=== PATIENT | female | born 1985 | race Hispanic/Latino ===

== ENCOUNTER 2016-06-16 11:09 | Emergency (ER) | payer MEDICAID ==
[2016-06-16 11:13] VITALS: BP 114/67; PULSE 79; TEMP 98; O2SAT 100
[2016-06-16 11:14] VITALS: BMI 20.9
--- NOTE | 2016-06-16 12:14 | ED PDOC ---
HPI: Female Pain Time Seen by Provider: 06/16/16 11:26 Chief Complaint (Nursing): Female Genitourinary Chief Complaint (Provider): Pelvic pain History Per: Patient Additional Complaint(s): Pt. complains of "lower abdominal cramping x 1 year pain radiates to right lower abdomen & worst pain during sexual intercourse". Pt. admits having an IUD placed 3 years ago. Pt also notes increased heavy periods over the last year. Past Medical History Reviewed: Nursing Documentation, Vital Signs Vital Signs: Last Vital Signs Temp 98 F 06/16/16 11:12 Pulse 79 06/16/16 11:12 Resp BP 114/67 06/16/16 11:12 Pulse Ox 100 06/16/16 11:12 - Medical History PMH: No Chronic Diseases - Surgical History Surgical History: No Surg Hx - Family History Family History: States: No Known Family Hx - Living Arrangements Living Arrangements: With Family - Social History Current smoker - smoking cessation education provided: No Alcohol: None Drugs: Denies - Home Medications Home Medications: Ambulatory Orders Medication Instructions Recorded Ibuprofen [Motrin] 600 mg PO Q6 #20 tab 06/16/16 - Allergies Allergies/Adverse Reactions: Allergies Allergy/AdvReac Type Severity Reaction Status Date / Time morphine Allergy ANAPHYLAXIS Verified 06/16/16 11:38 Review of Systems ROS Statement: Except As Marked, All Systems Reviewed And Found Negative Gastrointestinal: Positive for: Abdominal Pain Physical Exam - Reviewed Nursing Documentation Reviewed: Yes Vital Signs Reviewed: Yes - Physical Exam Appears: Positive for: Well, Non-toxic, No Acute Distress Head Exam: Positive for: ATRAUMATIC, NORMAL INSPECTION, NORMOCEPHALIC Skin: Positive for: Normal Color, Warm, DRY Eye Exam: Positive for: EOMI, Normal appearance, PERRL ENT: Positive for: Normal ENT Inspection Neck: Positive for: Normal, Painless ROM Cardiovascular/Chest: Positive for: Regular Rate, Rhythm Respiratory: Positive for: CNT, Normal Breath Sounds Gastrointestinal/Abdominal: Positive for: Bowel Sounds, Soft, Tenderness ( pelvic and RLW pain). Negative for: Distended, Guarding Back: Positive for: Normal Inspection Extremity: Positive for: Normal ROM Neurologic/Psych: Positive for: Alert, Oriented - Laboratory Results Result Diagrams: 06/16/16 12:48 06/16/16 12:48 - ECG O2 Sat by Pulse Oximetry: 100 Medical Decision Making Medical Decision Making: Preg (-) CBC, COMP and UA WNL IMPRESSION: 2.3 cm posterior wall fibroid in the lower uterine segment. IUD remains in satisfactory position. Pt educated on results and demonstrated full understanding. Advised OB follow up, return to ED with any concerns Disposition - Clinical Impression Clinical Impression: Pelvic pain, Uterine fibroid - Patient ED Disposition Is Patient to be Admitted: No - Disposition Referrals: Richmond Reilly Jr., MD [Primary Care Provider] - Disposition: Routine/Home Disposition Time: 15:37 Condition: STABLE Prescriptions: Ibuprofen [Motrin] 600 mg PO Q6 #20 tab Instructions: Uterine Fibroids (ED), Pelvic Pain in Women (ED)
[2016-06-16 12:42] LABS: URINE BILIRUBIN NEGATIVE (NEGATIVE); URINE BLOOD NEGATIVE (NEGATIVE); URINE COLOR YELLOW (YELLOW); URINE GLUCOSE (UA) NEG (Normal); URINE KETONE TRACE mg/dL (NEGATIVE); URINE LEUKOCYTE ESTERASE NEG Leu/uL (Negative); URINE PROTEIN 30 mg/dL (NEGATIVE); URINE UROBILINOGEN 0.2-1.0 mg/dL (0.2-1.0); WBC URINE 2 /hpf (0-5)
[2016-06-16 13:17] LABS: BASO # 0.1 K/uL (0.0-0.2); BASO % 0.8 % (0.0-2.0); EOS # 0.1 K/uL (0.0-0.7); EOS % 1.4 % (0.0-4.0); LYMPH # 1.9 K/uL (1.0-4.3); LYMPH % 30.3 % (20.0-40.0); MEAN CELL VOLUME 86.5 fl (81.0-99.0); MEAN CORPUSCULAR HEMOGLOBIN 29.8 pg (27.0-31.0); MEAN CORPUSCULAR HGB CONC 34.5 g/dL (33.0-37.0); MEAN PLATELET VOLUME 8.8 fl (7.2-11.7); MONO # 0.5 K/uL (0.0-0.8); MONO % 8.2 % (0.0-10.0); NEUT # 3.7 K/uL (1.8-7.0); NEUT % 59.3 % (50.0-75.0); NRBC % 0.1 % (0.0-0.0); RED CELL DISTRIBUTION WIDTH 15.2 % (11.5-14.5); WHITE BLOOD COUNT 6.3 K/uL (4.8-10.8)
[2016-06-16 13:22] LABS: ALB/GLOB RATIO 1.2 (1.0-2.1); ALKALINE PHOSPHATASE 61 U/L (38-126); ALT/SGPT 27 U/L (9-52); AST/SGOT 24 U/L (14-36); BILIRUBIN,TOTAL 1.4 mg/dl (0.2-1.3); BLOOD UREA NITROGEN 18 mg/dl (7-17); CALCIUM 9.9 mg/dL (8.4-10.2); CARBON DIOXIDE 27 mmol/L (22-30); CHLORIDE 100 mmol/L (98-107); GFR AFRICAN-AMERICAN > 60; GLUCOSE,RANDOM 90 mg/dL (65-105); POTASSIUM 4.1 MMOL/L (3.6-5.0); SODIUM 141 mmol/l (132-148); TOTAL PROTEIN 8.7 G/DL (6.3-8.2)
--- NOTE | 2016-06-16 15:11 | US ---
HISTORY: Suprapubic and RLQ pain COMPARISON: None available. TECHNIQUE: Transabdominal pelvic ultrasound was performed. FINDINGS: UTERUS: Measures 9.4 x 3.7 x 5.5 cm. Anteverted, normal in size and appearance. There is a 2.1 x 1.9 x 2.3 cm posterior wall fibroid in the lower uterine segment. ENDOMETRIUM: Measures 10 mm in diameter. An intrauterine device remains in satisfactory position. CERVIX: No cervical abnormality identified. RIGHT OVARY: Measures 2.4 x 1.6 x 2.4 cm. No solid mass. Normal flow. LEFT OVARY: Measures 3.2 x 2.2 x 3.3 cm. No solid mass. Normal flow. FREE FLUID: No significant free fluid noted. OTHER FINDINGS: None. IMPRESSION: 2.3 cm posterior wall fibroid in the lower uterine segment. IUD remains in satisfactory position.
== END 2016-06-16 15:48 | disposition home or self-care (01) ==
LOC: H.ER 11:09
DX: D25.9 Leiomyoma of uterus, unspecified (principal); R10.31 Right lower quadrant pain